=== PATIENT | female | born 1955 | race Caucasian/White ===

== ENCOUNTER 2020-01-14 08:16 | Day surgery (SDC) | payer MEDICARE ==
[2020-01-14] MEDS ORDERED: Sodium Chloride 0.9% 1,000 ML IV SCH (08:45)
[2020-01-14] MEDS ORDERED: fentaNYL 100 MCG/2 ML SDV ONE (08:59)
[2020-01-14] MEDS ORDERED: Midazolam 1 MG/ML 2 ML SDV ONE (08:59)
[2020-01-14] MEDS ORDERED: Propofol 200 MG/20 ML SDV ONE (08:59)
--- NOTE | 2020-01-14 11:29 | PROC ---
DATE OF PROCEDURE: 01/14/2020 SURGEON: Gianni Paez MD PROCEDURE: Colonoscopy. PREPROCEDURE DIAGNOSIS: Screening colonoscopy. POSTPROCEDURE DIAGNOSES: 1. Screening colonoscopy. 2. Normal colonoscopy. DESCRIPTION OF PROCEDURE: Risks and goals of procedure were reviewed with the patient. She gave informed consent to proceed. She was brought back to the endoscopy room. Sedation and monitoring provided by Daniel Zavaleta CRNA, from the Anesthesia Service. Time-out was held prior to the procedure to review right patient, right site, right procedure, and identify any potential concerns regarding the procedure, of which there were none. She was placed in a left lateral decubitus position. After adequate IV sedation, digital rectal exam was performed, which was unremarkable. Following this, the flexible colonoscope was placed and advanced out through the colon to the cecum. Cecum was identified by the appendiceal orifice and the ileocecal valve. The scope was then fully withdrawn back through the entire length of the colon looking for polyps, masses, or lesions. Scope was retroflexed in the rectum, then straightened and removed. There were no significant mucosal polyps, masses, or lesions noted, and the procedure was, otherwise, completed without complication. She will be monitored in [facility] in outpatient area until fully recovered from IV sedation and discharged to home. Gianni Paez MD /[id number]
== END 2020-01-14 11:40 | disposition home or self-care (01) ==
LOC: JP.SDS 08:16
PROVIDERS: ATTEND Hospitalist
DX: Z12.11 Encounter for screening for malignant neoplasm of colon (principal); K21.9 Gastro-esophageal reflux disease without esophagitis; E66.9 Obesity, unspecified; Z68.31 Body mass index [BMI] 31.0-31.9, adult
CPT/HCPCS: G0121; J2250; J2704; J3010; J7030

== ENCOUNTER 2022-11-03 16:17 | Emergency (ER) | payer MEDICARE | END 2022-11-03 18:20 | disposition home or self-care (01) | LOC: JP.ED 16:17 | DX: S40.021A Contusion of right upper arm, initial encounter (principal); E66.9 Obesity, unspecified; Z68.34 Body mass index [BMI] 34.0-34.9, adult; Z72.0 Tobacco use; W00.0XXA Fall on same level due to ice and snow, initial encounter | CPT/HCPCS: 73060-26-RT; 73060-RT; 99283 ==